=== PATIENT | female | born 1945 | race Caucasian/White ===

== ENCOUNTER 2021-10-03 16:09 | Inpatient (IN) | payer MEDICARE ==
[2021-10-03 17:56] VITALS: BMI 47.4
[2021-10-03] MEDS ORDERED: Benzonatate 100 MG CAP PO PRN (20:34)
[2021-10-03] MEDS ORDERED: Albuterol 200 PUFF (6.7GM INHALER) INH PRN (20:34)
[2021-10-03] MEDS ORDERED: Melatonin 3 MG TAB PO PRN (20:35)
[2021-10-03] MEDS ORDERED: Enoxaparin Sodium 40 MG/0.4 ML SYRINGE SC SCH (21:00)
[2021-10-03] MEDS ORDERED: Rosuvastatin 10 MG TAB PO SCH (21:00)
[2021-10-03] MEDS ORDERED: Enoxaparin Sodium 100 MG/ML SYRINGE SC SCH ×2 (21:30)
[2021-10-03] MEDS ORDERED: Enoxaparin Sodium 30 MG/0.3 ML SYRINGE SC SCH (21:30)
[2021-10-03] MEDS: busPIRone HCl 5 MG TAB PO SCH (22:17)
[2021-10-03] MEDS: Meclizine HCl 25 MG TAB PO SCH (22:17)
[2021-10-03] MEDS: Acetaminophen 325 MG TAB PO PRN (22:24)
[2021-10-04] MEDS: Acetaminophen 325 MG TAB PO PRN (01:46)
[2021-10-04] MEDS: Acetaminophen/Codeine 30-300mg Tablet PO PRN ×3 (02:48→09:31)
[2021-10-04] MEDS ORDERED: Furosemide 40 MG TAB PO SCH (07:30)
[2021-10-04] MEDS ORDERED: Potassium Chloride 20 MEQ TAB PO SCH (08:00)
[2021-10-04] MEDS: Meclizine HCl 25 MG TAB PO SCH (08:29)
[2021-10-04] MEDS: busPIRone HCl 5 MG TAB PO SCH (08:29)
[2021-10-04] MEDS ORDERED: Cholecalciferol (Vitamin D3) 5,000 UNITS CAPSULE PO SCH (09:00)
[2021-10-04] MEDS ORDERED: Apixaban 5 MG TAB PO SCH (09:00)
[2021-10-04] MEDS ORDERED: Ascorbic Acid 500 mg Chewable Tablet PO SCH (09:00)
[2021-10-04] MEDS ORDERED: NIFEdipine XL 30 MG TAB PO SCH (09:00)
[2021-10-04] MEDS ORDERED: Dexamethasone 4 MG TAB PO SCH (09:00)
[2021-10-04] MEDS ORDERED: Vit A,C & E/Lutein/Minerals Tablet PO SCH (09:00)
[2021-10-04] MEDS ORDERED: Zinc Sulfate 220 MG CAP PO SCH (09:00)
[2021-10-04] MEDS ORDERED: FEXOFENADINE PO SCH (09:00)
[2021-10-04] MEDS ORDERED: PSEUDOEPHEDRINE PO SCH (09:00)
[2021-10-04] MEDS ORDERED: Ubidecarenone 50 MG CAP PO SCH (09:00)
[2021-10-04] MEDS ORDERED: Non-Formulary Item 1 EACH (Cyanocobalamin (Vitamin B-12) [Vitamin B12] 5,000 MCG Tab.Rapd PO SCH (09:00)
[2021-10-04 09:37] VITALS: BP 126/78; TEMP 98.3
== END 2021-10-04 09:40 | disposition short-term general hospital (02) | DRG 178 ==
LOC: MADMS 17:08
PROVIDERS: ADMIT Family Medicine; ATTEND Family Medicine
DX: U07.1 COVID-19 (principal); Z68.42 Body mass index [BMI] 45.0-49.9, adult; R53.81 Other malaise; E66.01 Morbid (severe) obesity due to excess calories; E11.9 Type 2 diabetes mellitus without complications; I10 Essential (primary) hypertension; E78.5 Hyperlipidemia, unspecified; Z96.653 Presence of artificial knee joint, bilateral; Z90.710 Acquired absence of both cervix and uterus; Z90.49 Acquired absence of other specified parts of digestive tract; Z91.040 Latex allergy status; Z88.2 Allergy status to sulfonamides; Z88.5 Allergy status to narcotic agent; Z79.899 Other long term (current) drug therapy
CPT/HCPCS: 36416; J1650; J8540

== ENCOUNTER 2021-10-16 10:23 | Inpatient (IN) | payer MEDICARE ==
[2021-10-16] MEDS ORDERED: Non-Formulary Item 1 EACH (Acetaminophen [Tylenol] 325 MG Capsule) PO PRN (12:52)
[2021-10-16] MEDS: Meclizine HCl 25 MG TAB PO SCH ×2 (15:30→20:52)
[2021-10-16] MEDS: Polyethylene Glycol 3350 17 GM Packet PO SCH (20:50)
[2021-10-16] MEDS: Triamcinolone 0.1% Cream 15 GM TUBE TOP SCH (20:50)
[2021-10-16] MEDS: Ferrous Sulfate 325 MG TAB PO SCH (20:51)
[2021-10-16] MEDS: Senokot S 8.6-50 MG TAB PO SCH (20:51)
[2021-10-16] MEDS: busPIRone HCl 5 MG TAB PO SCH (20:51)
[2021-10-16] MEDS: Rosuvastatin 10 MG TAB PO SCH (20:52)
[2021-10-16] MEDS: guaiFENesin ER 600 MG TAB PO SCH (20:52)
[2021-10-16] MEDS: Acetaminophen 325 MG TAB PO PRN (20:52)
[2021-10-16] MEDS ORDERED: Non-Formulary Item 1 EACH (Ferrous Sulfate [Ferrous Sulfate] 325 MG Tablet) PO SCH (21:00)
[2021-10-16] MEDS ORDERED: BUSPIRONE HCL 10 MG PO SCH (21:00)
[2021-10-17] MEDS ORDERED: Non-Formulary Item 1 EACH (Dexlansoprazole [Dexilant] 60 MG Cap.Dr.Mp) PO SCH (09:00)
[2021-10-17] MEDS ORDERED: Non-Formulary Item 1 EACH (C,E,Zinc,Copper 24/Om3/Lut/Zea [Ocuvite Adult 50 Plus Softgel] PO SCH (09:00)
[2021-10-17] MEDS ORDERED: Cholecalciferol (Vitamin D3) 5,000 UNITS CAPSULE PO SCH (09:00)
[2021-10-17] MEDS ORDERED: Non-Formulary Item 1 EACH (Ascorbic Acid [Vitamin C] 500 MG Capsule) PO SCH (09:00)
[2021-10-17] MEDS ORDERED: Non-Formulary Item 1 EACH (Cyanocobalamin (Vitamin B-12) [Vitamin B12] 5,000 MCG Tab.Rapd PO SCH (09:00)
[2021-10-17] MEDS ORDERED: UBIDECARENONE 30 MG PO SCH (09:00)
[2021-10-17] MEDS: Senokot S 8.6-50 MG TAB PO SCH ×2 (09:22→20:20)
[2021-10-17] MEDS: Vit A,C & E/Lutein/Minerals Tablet PO SCH (09:22)
[2021-10-17] MEDS: guaiFENesin ER 600 MG TAB PO SCH ×2 (09:22→20:20)
[2021-10-17] MEDS: busPIRone HCl 5 MG TAB PO SCH ×2 (09:22→20:20)
[2021-10-17] MEDS: Cholecalciferol (Vitamin D3) 5,000 UNITS CAPSULE PO SCH (09:22)
[2021-10-17] MEDS: Cyanocobalamin (Vitamin B-12) 1,000 MCG TAB PO SCH (09:22)
[2021-10-17] MEDS: Ubidecarenone 50 MG CAP PO SCH (09:22)
[2021-10-17] MEDS: Ferrous Sulfate 325 MG TAB PO SCH ×2 (09:23→20:20)
[2021-10-17] MEDS: NIFEdipine XL 30 MG TAB PO SCH (09:23)
[2021-10-17] MEDS: Folic Acid 1 MG TAB PO SCH (09:23)
[2021-10-17] MEDS: Triamcinolone 0.1% Cream 15 GM TUBE TOP SCH ×2 (09:23→20:19)
[2021-10-17] MEDS: Ascorbic Acid 500 mg Chewable Tablet PO SCH (09:23)
[2021-10-17] MEDS: Meclizine HCl 25 MG TAB PO SCH ×3 (09:23→20:20)
[2021-10-17] MEDS: Acetaminophen 325 MG TAB PO PRN ×3 (10:50→20:21)
[2021-10-17] MEDS: Polyethylene Glycol 3350 17 GM Packet PO SCH (20:19)
[2021-10-17] MEDS: Rosuvastatin 10 MG TAB PO SCH (20:20)
[2021-10-18] MEDS: Vit A,C & E/Lutein/Minerals Tablet PO SCH (08:35)
[2021-10-18] MEDS: Cyanocobalamin (Vitamin B-12) 1,000 MCG TAB PO SCH (08:35)
[2021-10-18] MEDS: Senokot S 8.6-50 MG TAB PO SCH ×2 (08:36→20:40)
[2021-10-18] MEDS: Ferrous Sulfate 325 MG TAB PO SCH ×2 (08:36→20:39)
[2021-10-18] MEDS: busPIRone HCl 5 MG TAB PO SCH ×2 (08:36→20:39)
[2021-10-18] MEDS: Meclizine HCl 25 MG TAB PO SCH ×3 (08:36→20:39)
[2021-10-18] MEDS: Ubidecarenone 50 MG CAP PO SCH (08:36)
[2021-10-18] MEDS: Ascorbic Acid 500 mg Chewable Tablet PO SCH (08:36)
[2021-10-18] MEDS: Folic Acid 1 MG TAB PO SCH (08:37)
[2021-10-18] MEDS: Acetaminophen 325 MG TAB PO PRN ×2 (08:37→23:52)
[2021-10-18] MEDS: guaiFENesin ER 600 MG TAB PO SCH ×2 (08:37→20:37)
[2021-10-18] MEDS: NIFEdipine XL 30 MG TAB PO SCH (08:37)
[2021-10-18] MEDS: Triamcinolone 0.1% Cream 15 GM TUBE TOP SCH ×2 (08:38→20:54)
[2021-10-18] MEDS: Cholecalciferol (Vitamin D3) 5,000 UNITS CAPSULE PO SCH (08:38)
[2021-10-18] MEDS: traMADol HCl 50 MG TAB PO PRN ×2 (12:18→20:37)
[2021-10-18] MEDS: Rosuvastatin 10 MG TAB PO SCH (20:39)
[2021-10-18] MEDS: Polyethylene Glycol 3350 17 GM Packet PO SCH (20:40)
[2021-10-19 05:21] LABS: Hemoglobin 8.4 g/dL (12.0-16.0); Mean Corpuscular HGB CONC 32.8 g/dL (32.0-36.0); Mean Corpuscular Hemoglobin 30.1 pg (27.0-31.0); Mean Platelet Volume 7.7 fL (7.4-10.4); Platelet Count 234 thou/uL (130-400); Red Blood Cell (RBC) Count 2.78 mill/uL (4.20-5.40); White Blood Cell (WBC) Count 4.4 thou/uL (4.8-10.8)
[2021-10-19 05:51] LABS: Anion Gap 12 mmol/L (10-20); BUN (Urea Nitrogen) 14 mg/dL (9.8-20.1); Calc. Creatinine Clearance 155 mL/min (70-130); Calcium 8.6 mg/dL (7.8-10.44); Carbon Dioxide 25 mmol/L (23-31); Chloride 110 mmol/L (98-107); Estimated GFR 93; Glucose 90 mg/dL (83-110); Potassium 3.7 mmol/L (3.5-5.1); Sodium 143 mmol/L (136-145)
[2021-10-19] MEDS: Cholecalciferol (Vitamin D3) 5,000 UNITS CAPSULE PO SCH (09:29)
[2021-10-19] MEDS: Cyanocobalamin (Vitamin B-12) 1,000 MCG TAB PO SCH (09:29)
[2021-10-19] MEDS: Senokot S 8.6-50 MG TAB PO SCH ×2 (09:30→20:46)
[2021-10-19] MEDS: Folic Acid 1 MG TAB PO SCH (09:30)
[2021-10-19] MEDS: Ubidecarenone 50 MG CAP PO SCH (09:30)
[2021-10-19] MEDS: Vit A,C & E/Lutein/Minerals Tablet PO SCH (09:30)
[2021-10-19] MEDS: guaiFENesin ER 600 MG TAB PO SCH ×2 (09:30→20:46)
[2021-10-19] MEDS: Ferrous Sulfate 325 MG TAB PO SCH ×2 (09:30→17:30)
[2021-10-19] MEDS: Ascorbic Acid 500 mg Chewable Tablet PO SCH (09:30)
[2021-10-19] MEDS: busPIRone HCl 5 MG TAB PO SCH ×2 (09:31→20:46)
[2021-10-19] MEDS: Meclizine HCl 25 MG TAB PO SCH ×3 (09:31→20:46)
[2021-10-19] MEDS: NIFEdipine XL 30 MG TAB PO SCH (09:31)
[2021-10-19] MEDS: Triamcinolone 0.1% Cream 15 GM TUBE TOP SCH ×2 (09:36→20:47)
[2021-10-19] MEDS: traMADol HCl 50 MG TAB PO PRN (11:24)
[2021-10-19] MEDS ORDERED: Furosemide 20 MG TAB PO SCH (13:45)
[2021-10-19] MEDS: Polyethylene Glycol 3350 17 GM Packet PO SCH (20:45)
[2021-10-19] MEDS: Acetaminophen 325 MG TAB PO PRN (20:45)
[2021-10-19] MEDS: Rosuvastatin 10 MG TAB PO SCH (20:47)
[2021-10-20] MEDS: Triamcinolone 0.1% Cream 15 GM TUBE TOP SCH ×2 (08:08→20:23)
[2021-10-20] MEDS: Ubidecarenone 50 MG CAP PO SCH (08:08)
[2021-10-20] MEDS: NIFEdipine XL 30 MG TAB PO SCH (08:08)
[2021-10-20] MEDS: Meclizine HCl 25 MG TAB PO SCH ×3 (08:09→20:20)
[2021-10-20] MEDS: Folic Acid 1 MG TAB PO SCH (08:09)
[2021-10-20] MEDS: Ascorbic Acid 500 mg Chewable Tablet PO SCH (08:09)
[2021-10-20] MEDS: Vit A,C & E/Lutein/Minerals Tablet PO SCH (08:09)
[2021-10-20] MEDS: busPIRone HCl 5 MG TAB PO SCH ×2 (08:09→20:20)
[2021-10-20] MEDS: Cyanocobalamin (Vitamin B-12) 1,000 MCG TAB PO SCH (08:09)
[2021-10-20] MEDS: Cholecalciferol (Vitamin D3) 5,000 UNITS CAPSULE PO SCH (08:09)
[2021-10-20] MEDS: guaiFENesin ER 600 MG TAB PO SCH ×2 (08:10→20:20)
[2021-10-20] MEDS: Ferrous Sulfate 325 MG TAB PO SCH ×2 (08:10→17:43)
[2021-10-20] MEDS: Furosemide 20 MG TAB PO SCH (08:10)
[2021-10-20] MEDS: Senokot S 8.6-50 MG TAB PO SCH ×2 (08:12→20:24)
[2021-10-20] MEDS: Rosuvastatin 10 MG TAB PO SCH (20:21)
[2021-10-20] MEDS: HYDROcodone/Acetaminophen 5/325 mg Tablet PO PRN (20:21)
[2021-10-20] MEDS: Polyethylene Glycol 3350 17 GM Packet PO SCH (20:24)
[2021-10-21] MEDS: Meclizine HCl 25 MG TAB PO SCH ×3 (08:17→20:52)
[2021-10-21] MEDS: busPIRone HCl 5 MG TAB PO SCH ×2 (08:17→20:52)
[2021-10-21] MEDS: Vit A,C & E/Lutein/Minerals Tablet PO SCH (08:17)
[2021-10-21] MEDS: Ubidecarenone 50 MG CAP PO SCH (08:18)
[2021-10-21] MEDS: Cyanocobalamin (Vitamin B-12) 1,000 MCG TAB PO SCH (08:18)
[2021-10-21] MEDS: Cholecalciferol (Vitamin D3) 5,000 UNITS CAPSULE PO SCH (08:18)
[2021-10-21] MEDS: NIFEdipine XL 30 MG TAB PO SCH (08:18)
[2021-10-21] MEDS: Ferrous Sulfate 325 MG TAB PO SCH ×2 (08:19→17:16)
[2021-10-21] MEDS: Ascorbic Acid 500 mg Chewable Tablet PO SCH (08:19)
[2021-10-21] MEDS: guaiFENesin ER 600 MG TAB PO SCH ×2 (08:19→20:52)
[2021-10-21] MEDS: Furosemide 20 MG TAB PO SCH (08:19)
[2021-10-21] MEDS: Folic Acid 1 MG TAB PO SCH (08:19)
[2021-10-21] MEDS: Triamcinolone 0.1% Cream 15 GM TUBE TOP SCH ×2 (08:21→20:58)
[2021-10-21] MEDS: Senokot S 8.6-50 MG TAB PO SCH ×2 (08:28→20:58)
[2021-10-21] MEDS: HYDROcodone/Acetaminophen 5/325 mg Tablet PO PRN (20:50)
[2021-10-21] MEDS: Rosuvastatin 10 MG TAB PO SCH (20:52)
[2021-10-21] MEDS: Polyethylene Glycol 3350 17 GM Packet PO SCH (20:52)
[2021-10-22 06:42] VITALS: BMI 45.8
[2021-10-22] MEDS: Meclizine HCl 25 MG TAB PO SCH ×3 (08:48→21:02)
[2021-10-22] MEDS: Cyanocobalamin (Vitamin B-12) 1,000 MCG TAB PO SCH (08:48)
[2021-10-22] MEDS: Furosemide 20 MG TAB PO SCH (08:48)
[2021-10-22] MEDS: Ascorbic Acid 500 mg Chewable Tablet PO SCH (08:48)
[2021-10-22] MEDS: busPIRone HCl 5 MG TAB PO SCH ×2 (08:48→21:02)
[2021-10-22] MEDS: Vit A,C & E/Lutein/Minerals Tablet PO SCH (08:48)
[2021-10-22] MEDS: Ubidecarenone 50 MG CAP PO SCH (08:48)
[2021-10-22] MEDS: guaiFENesin ER 600 MG TAB PO SCH ×2 (08:48→20:57)
[2021-10-22] MEDS: Folic Acid 1 MG TAB PO SCH (08:49)
[2021-10-22] MEDS: NIFEdipine XL 30 MG TAB PO SCH (08:49)
[2021-10-22] MEDS: Senokot S 8.6-50 MG TAB PO SCH ×2 (08:49→21:01)
[2021-10-22] MEDS: Ferrous Sulfate 325 MG TAB PO SCH ×2 (08:49→17:06)
[2021-10-22] MEDS: Cholecalciferol (Vitamin D3) 5,000 UNITS CAPSULE PO SCH (08:49)
[2021-10-22] MEDS: Triamcinolone 0.1% Cream 15 GM TUBE TOP SCH ×2 (08:55→21:03)
[2021-10-22] MEDS: HYDROcodone/Acetaminophen 5/325 mg Tablet PO PRN (20:56)
[2021-10-22] MEDS: Polyethylene Glycol 3350 17 GM Packet PO SCH (20:57)
[2021-10-22] MEDS: Rosuvastatin 10 MG TAB PO SCH (20:57)
[2021-10-23 05:29] LABS: Anion Gap 13 mmol/L (10-20); BUN (Urea Nitrogen) 13 mg/dL (9.8-20.1); Calc. Creatinine Clearance 160 mL/min (70-130); Calcium 8.5 mg/dL (7.8-10.44); Carbon Dioxide 23 mmol/L (23-31); Chloride 111 mmol/L (98-107); Estimated GFR 94; Glucose 91 mg/dL (83-110); Potassium 3.3 mmol/L (3.5-5.1); Sodium 144 mmol/L (136-145)
[2021-10-23] MEDS: Ferrous Sulfate 325 MG TAB PO SCH ×2 (08:30→17:16)
[2021-10-23] MEDS: Ascorbic Acid 500 mg Chewable Tablet PO SCH (08:31)
[2021-10-23] MEDS: Ubidecarenone 50 MG CAP PO SCH (08:31)
[2021-10-23] MEDS: Vit A,C & E/Lutein/Minerals Tablet PO SCH (08:31)
[2021-10-23] MEDS: Cyanocobalamin (Vitamin B-12) 1,000 MCG TAB PO SCH (08:31)
[2021-10-23] MEDS: Furosemide 20 MG TAB PO SCH (08:31)
[2021-10-23] MEDS: guaiFENesin ER 600 MG TAB PO SCH ×2 (08:31→20:41)
[2021-10-23] MEDS: Cholecalciferol (Vitamin D3) 5,000 UNITS CAPSULE PO SCH (08:31)
[2021-10-23] MEDS: Folic Acid 1 MG TAB PO SCH (08:32)
[2021-10-23] MEDS: busPIRone HCl 5 MG TAB PO SCH ×2 (08:32→20:36)
[2021-10-23] MEDS: Meclizine HCl 25 MG TAB PO SCH ×3 (08:32→20:36)
[2021-10-23] MEDS: NIFEdipine XL 30 MG TAB PO SCH (08:32)
[2021-10-23] MEDS: Acetaminophen 325 MG TAB PO PRN (08:33)
[2021-10-23] MEDS: Triamcinolone 0.1% Cream 15 GM TUBE TOP SCH ×2 (08:34→20:41)
[2021-10-23] MEDS: Senokot S 8.6-50 MG TAB PO SCH ×2 (08:34→20:16)
[2021-10-23] MEDS ORDERED: Potassium Chloride 20 MEQ TAB PO SCH (09:00)
[2021-10-23] MEDS: Polyethylene Glycol 3350 17 GM Packet PO SCH (20:36)
[2021-10-23] MEDS: Rosuvastatin 10 MG TAB PO SCH (20:36)
[2021-10-23] MEDS: HYDROcodone/Acetaminophen 5/325 mg Tablet PO PRN (22:13)
[2021-10-24] MEDS: Cholecalciferol (Vitamin D3) 5,000 UNITS CAPSULE PO SCH (08:31)
[2021-10-24] MEDS: Ubidecarenone 50 MG CAP PO SCH (08:31)
[2021-10-24] MEDS: Vit A,C & E/Lutein/Minerals Tablet PO SCH (08:31)
[2021-10-24] MEDS: Potassium Chloride 10 MEQ TAB PO SCH (08:31)
[2021-10-24] MEDS: Ferrous Sulfate 325 MG TAB PO SCH ×2 (08:31→17:07)
[2021-10-24] MEDS: Cyanocobalamin (Vitamin B-12) 1,000 MCG TAB PO SCH (08:31)
[2021-10-24] MEDS: Acetaminophen 325 MG TAB PO PRN (08:32)
[2021-10-24] MEDS: NIFEdipine XL 30 MG TAB PO SCH (08:32)
[2021-10-24] MEDS: guaiFENesin ER 600 MG TAB PO SCH ×2 (08:32→20:18)
[2021-10-24] MEDS: Folic Acid 1 MG TAB PO SCH (08:32)
[2021-10-24] MEDS: Senokot S 8.6-50 MG TAB PO SCH ×2 (08:32→20:19)
[2021-10-24] MEDS: Furosemide 20 MG TAB PO SCH (08:32)
[2021-10-24] MEDS: busPIRone HCl 5 MG TAB PO SCH ×2 (08:32→20:18)
[2021-10-24] MEDS: Meclizine HCl 25 MG TAB PO SCH ×3 (08:32→20:18)
[2021-10-24] MEDS: Ascorbic Acid 500 mg Chewable Tablet PO SCH (08:32)
[2021-10-24] MEDS: HYDROcodone/Acetaminophen 5/325 mg Tablet PO PRN (19:27)
[2021-10-24] MEDS: Polyethylene Glycol 3350 17 GM Packet PO SCH (20:18)
[2021-10-24] MEDS: Rosuvastatin 10 MG TAB PO SCH (20:18)
[2021-10-25] MEDS: Ferrous Sulfate 325 MG TAB PO SCH ×2 (08:33→17:03)
[2021-10-25] MEDS: NIFEdipine XL 30 MG TAB PO SCH (08:34)
[2021-10-25] MEDS: Cyanocobalamin (Vitamin B-12) 1,000 MCG TAB PO SCH (08:34)
[2021-10-25] MEDS: Vit A,C & E/Lutein/Minerals Tablet PO SCH (08:34)
[2021-10-25] MEDS: guaiFENesin ER 600 MG TAB PO SCH ×2 (08:34→20:58)
[2021-10-25] MEDS: Ascorbic Acid 500 mg Chewable Tablet PO SCH (08:34)
[2021-10-25] MEDS: Potassium Chloride 10 MEQ TAB PO SCH (08:34)
[2021-10-25] MEDS: Furosemide 20 MG TAB PO SCH (08:34)
[2021-10-25] MEDS: Meclizine HCl 25 MG TAB PO SCH ×3 (08:34→20:58)
[2021-10-25] MEDS: Cholecalciferol (Vitamin D3) 5,000 UNITS CAPSULE PO SCH (08:34)
[2021-10-25] MEDS: Folic Acid 1 MG TAB PO SCH (08:34)
[2021-10-25] MEDS: Senokot S 8.6-50 MG TAB PO SCH ×2 (08:35→20:58)
[2021-10-25] MEDS: busPIRone HCl 5 MG TAB PO SCH ×2 (08:36→20:56)
[2021-10-25] MEDS: Acetaminophen 325 MG TAB PO PRN (08:36)
[2021-10-25] MEDS: Ubidecarenone 50 MG CAP PO SCH (10:26)
[2021-10-25] MEDS: Rosuvastatin 10 MG TAB PO SCH (20:58)
[2021-10-25] MEDS: Polyethylene Glycol 3350 17 GM Packet PO SCH (20:58)
[2021-10-26 06:04] LABS: Anion Gap 12 mmol/L (10-20); BUN (Urea Nitrogen) 16 mg/dL (9.8-20.1); Calc. Creatinine Clearance 154 mL/min (70-130); Calcium 8.5 mg/dL (7.8-10.44); Carbon Dioxide 26 mmol/L (23-31); Chloride 110 mmol/L (98-107); Estimated GFR 93; Glucose 92 mg/dL (83-110); Potassium 3.8 mmol/L (3.5-5.1); Sodium 144 mmol/L (136-145)
[2021-10-26 07:34] VITALS: BP 117/68; TEMP 97.8
[2021-10-26] MEDS: Folic Acid 1 MG TAB PO SCH (08:20)
[2021-10-26] MEDS: guaiFENesin ER 600 MG TAB PO SCH (08:20)
[2021-10-26] MEDS: Cyanocobalamin (Vitamin B-12) 1,000 MCG TAB PO SCH (08:20)
[2021-10-26] MEDS: Potassium Chloride 10 MEQ TAB PO SCH (08:20)
[2021-10-26] MEDS: Cholecalciferol (Vitamin D3) 5,000 UNITS CAPSULE PO SCH (08:20)
[2021-10-26] MEDS: busPIRone HCl 5 MG TAB PO SCH (08:20)
[2021-10-26] MEDS: Meclizine HCl 25 MG TAB PO SCH (08:20)
[2021-10-26] MEDS: Furosemide 20 MG TAB PO SCH (08:20)
[2021-10-26] MEDS: Vit A,C & E/Lutein/Minerals Tablet PO SCH (08:20)
[2021-10-26] MEDS: NIFEdipine XL 30 MG TAB PO SCH (08:22)
[2021-10-26] MEDS: Ascorbic Acid 500 mg Chewable Tablet PO SCH (08:23)
[2021-10-26] MEDS: Senokot S 8.6-50 MG TAB PO SCH (08:23)
[2021-10-26] MEDS: Ferrous Sulfate 325 MG TAB PO SCH (08:23)
[2021-10-26] MEDS: Ubidecarenone 50 MG CAP PO SCH (08:25)
[2021-10-26] MEDS ORDERED: Triamcinolone 0.1% Cream 15 GM TUBE TOP PRN (10:13)
== END 2021-10-26 11:35 | disposition home or self-care (01) | DRG 948 ==
LOC: MADMS 10:23
PROVIDERS: ADMIT Family Medicine; ATTEND Family Medicine
DX: R53.81 Other malaise (principal); Z68.42 Body mass index [BMI] 45.0-49.9, adult; E66.01 Morbid (severe) obesity due to excess calories; M79.7 Fibromyalgia; E11.9 Type 2 diabetes mellitus without complications; I10 Essential (primary) hypertension; E78.5 Hyperlipidemia, unspecified; K59.00 Constipation, unspecified; R53.1 Weakness; Z96.653 Presence of artificial knee joint, bilateral; E87.6 Hypokalemia; Z86.16 Personal history of COVID-19; Z87.01 Personal history of pneumonia (recurrent); Z86.711 Personal history of pulmonary embolism; Z88.5 Allergy status to narcotic agent; Z91.040 Latex allergy status; Z88.2 Allergy status to sulfonamides; Z79.899 Other long term (current) drug therapy; Z90.710 Acquired absence of both cervix and uterus; Z90.49 Acquired absence of other specified parts of digestive tract; Z83.3 Family history of diabetes mellitus; Z95.828 Presence of other vascular implants and grafts
CPT/HCPCS: 36415; 80048; 85027